=== PATIENT | female | born 1970 | race Caucasian/White ===

== ENCOUNTER → 2023-07-09 11:33 | Outpatient (REF) | payer OTHER, SELFPAY | LOC: HWRAD 11:33 | PROVIDERS: ATTENDING PHYSICIAN Internal Medicine Medical Oncology; FAMILY PHYSICIAN Family Medicine | DX: C79.51 Secondary malignant neoplasm of bone (principal) | CPT/HCPCS: 71260; 74177; Q9967 ==

== ENCOUNTER → 2023-07-10 07:59 | Outpatient (REF) | payer OTHER, SELFPAY | LOC: RAD 07:59 | PROVIDERS: ATTENDING PHYSICIAN Internal Medicine Medical Oncology; FAMILY PHYSICIAN Family Medicine | DX: C79.51 Secondary malignant neoplasm of bone (principal) | CPT/HCPCS: 78306; A9503 ==

== ENCOUNTER → 2023-10-21 14:51 | Outpatient (REF) | payer OTHER, SELFPAY | LOC: HWRAD 14:51 | PROVIDERS: ATTENDING PHYSICIAN Internal Medicine Medical Oncology; FAMILY PHYSICIAN Family Medicine | DX: C79.51 Secondary malignant neoplasm of bone (principal) | CPT/HCPCS: 71260; 74177; Q9967 ==

== ENCOUNTER → 2024-01-09 09:44 | Outpatient (REF) | payer OTHER, SELFPAY | LOC: HWRAD 09:44 | PROVIDERS: ATTENDING PHYSICIAN Nurse Practitioner Adult Health; FAMILY PHYSICIAN Family Medicine; REFERRING PHYSICIAN Orthopaedic Surgery Sports Medicine | DX: C79.51 Secondary malignant neoplasm of bone (principal); C50.919 Malignant neoplasm of unspecified site of unspecified female breast | CPT/HCPCS: 71260; 74177; Q9967 ==

== ENCOUNTER → 2024-05-01 16:03 | Outpatient (REF) | payer OTHER, SELFPAY | LOC: RAD 16:03 | PROVIDERS: ATTENDING PHYSICIAN Internal Medicine Medical Oncology; FAMILY PHYSICIAN Family Medicine | DX: C79.51 Secondary malignant neoplasm of bone (principal) | CPT/HCPCS: 71260; 74177; Q9967 ==

== ENCOUNTER 2024-06-02 12:37 | Emergency (ER) | payer OTHER, SELFPAY ==
[2024-06-02 12:41] VITALS: BP 113/69
[2024-06-02 13:05] LABS: % Basophils 0.1 % (0-2); % Eosinophils 2.4 % (0-6); % Immature Granulocytes 1.6 % (0-0.5); % Lymphocytes 7.6 % (20.5-51.1); % Monocytes 5.3 % (1.7-9.3); Absolute Eosinophils 0.2 10^3/uL (0-0.7); Absolute Immature Granulocytes 0.1 10^3/uL (0-0.05); Absolute Lymphocytes 0.7 10^3/uL (1.2-3.4); Absolute Monocytes 0.5 10^3/uL (0.1-0.6); Absolute Neutrophils 7.4 10^3/uL (1.4-6.5); Hematocrit 27.2 % (37.0-47.0); Hemoglobin 9.1 g/dL (12.0-16.0); Mean Corp Hgb Conc. 33.5 g/dL (33.0-37.0); Mean Corpuscular Hgb 39.7 pg (27.0-31.0); Mean Corpuscular Volume 118.8 fL (81.0-99.0); Mean Platelet Volume 10.6 fL (7.4-10.4); Nucleated Red Blood Cells % 0.4 %; Platelet Count 213 10^3/uL (130-400); Red Blood Cell Count 2.29 10^6/uL (4.20-5.40); Red Cell Dist. Width 18.1 % (11.5-14.5); White Blood Cell Count 8.9 10^3/uL (4.8-10.8)
[2024-06-02 13:18] LABS: COVID-19 Antigen Negative (Negative)
[2024-06-02 13:25] LABS: ALT (SGPT) 20 U/L (0-35); AST (SGOT) 23 U/L (14-36); Albumin 3.3 g/dl (3.5-5.0); Alkaline Phosphatase 173 U/L (38-126); Blood Urea Nitrogen 16 mg/dl (7-17); Carbon Dioxide 29 mmol/L (22-30); Chloride 97 mmol/L (98-107); Potassium 3.2 mmol/L (3.5-5.1); Sodium 136 mmol/L (135-145); Total Protein 5.9 g/dl (6.3-8.2)
[2024-06-02 13:33] LABS: NT-proBNP 520 pg/ml
[2024-06-02 13:49] LABS: Glucose 129 mg/dl (70-99); Total Bilirubin 1.1 mg/dl (0.2-1.3); eGFR > 60.00
[2024-06-02 15:29] VITALS: BP 102/71
--- NOTE | 2024-06-02 16:16 | ED.GENMED ---
History of Present Illness
General
Chief Complaint: Breathing Problem
Source: patient
Exam Limitations: none
Time Seen by Provider: 06/02/24 16:01
Nursing documentation reviewed up to this point in time: agreed with
History of Present Illness
History of Present Illness:
Patient is a 53-year-old female with history metastatic breast cancer (to bones)on oral chemotherapy presents to the ER for evaluation of cough. Patient has had cough for the past 6 days minimally short of breath and has had wheezing with cough.
She denies any fevers. No other sick contacts. She is followed by Dr. Bacon at [facility].
Past History
Past History
ED Past Medical History: Cancer (Metastatic breast CA)
Review of Systems
Review of Systems
Allergies reviewed?: Yes
All Other Systems: ROS reviewed and negative except as documented in HPI and ROS
Constitutional: Denies fever, fatigue or chills
EENT: Reports no symptoms
Respiratory: Reports cough, trouble breathing and other (' Wheezing')
ABD/GI: Reports no symptoms
Musculoskeletal: Reports no symptoms
Skin: Reports no symptoms
Neurological: Reports no symptoms
Psychiatric: Reports no symptoms
Phy Exam
General Physical Exam
General Presentation: no apparent distress
General age: appears stated age
General Skin: warm and dry
General Habitus: normal
General Mental: alert
General Hydration: appears well hydrated
Cardiovascular Exam
Cardiovascular Exam: regular rate/rhythm, no murmur and normal peripheral pulses
Pulmonary Exam
Pulmonary Exam: other (Expiratory wheezing; cough )
Neurological Exam
Neurological Exam: alert and oriented x3
Musculoskeletal Exam
Musculoskeletal Exam: full ROM
Skin Exam
Skin Exam: normal color, warm/dry and other (Chronic skin discoloration from oral chemotherapy)
Psychiatric Exam
Psychiatric Exam: normal mood/affect
Scores
Heart Failure Risk
Heart Failure Risk Score: Not Applicable
Course
Orders/Labs/Results
Orders:
Orders
06/02/24 12:44
Electrocardiogram (*1) Urgent
Reason for Study: Shortness of Breath
06/02/24 12:45
EKG- Treatment ONCE
06/02/24 12:49
COVID-19 Antigen Urgent
Source: Nasal Swab
Complete Blood Count/With Diff Urgent
Comprehensive Metabolic Panel Urgent
NT-proBNP Urgent
Influenza A+B Rapid Molecular Urgent
KEVIN Source: Nasal Swab
Specimen Description:
06/02/24 13:21
CR Chest - 2 Views Urgent
Comment:
Reason For Exam: cough
06/02/24 16:31
Albuterol Nebs [Ventolin Nebules] 2.5 mg INH R NOW STA
Abnormal Lab Results
06/02/24
12:49
RBC 2.29 L 10^6/uL
(4.20-5.40)
Hgb 9.1 L g/dL
(12.0-16.0)
Hct 27.2 L %
(37.0-47.0)
MCV 118.8 H fL
(81.0-99.0)
MCH 39.7 H pg
(27.0-31.0)
RDW 18.1 H %
(11.5-14.5)
MPV 10.6 H fL
(7.4-10.4)
Abs Immat Gran (auto) 0.1 H 10^3/uL
(0-0.05)
Absolute Neuts (auto) 7.4 H 10^3/uL
(1.4-6.5)
Absolute Lymphs (auto) 0.7 L 10^3/uL
(1.2-3.4)
Immature Gran % 1.6 H %
(0-0.5)
Neutrophils % 83.0 H %
(42.2-75.2)
Lymphocytes % 7.6 L %
(20.5-51.1)
Potassium 3.2 L mmol/L
(3.5-5.1)
Chloride 97 L mmol/L
(98-107)
Glucose 129 H mg/dl
(70-99)
Alkaline Phosphatase 173 H U/L
(38-126)
Total Protein 5.9 L g/dl
(6.3-8.2)
Albumin 3.3 L g/dl
(3.5-5.0)
06/02/24 12:49
06/02/24 12:49
Vital Signs
Initial and Last Documented VS:
Initial Vital Signs
Temp Pulse Resp BP Pulse Ox
98.0 F 110 18 113/69 94
06/02/24 12:41 06/02/24 12:41 06/02/24 12:41 06/02/24 12:41 06/02/24 12:41
Last Documented Vital Signs
Temp Pulse Resp BP Pulse Ox
98.2 F 84 29 114/67 97
06/02/24 15:29 06/02/24 17:30 06/02/24 17:30 06/02/24 17:03 06/02/24 18:00
Back Office Medical Assistant consulted with Physician
Back Office Medical Assistant consulted with physician?: Yes
Name of Physician Consulted: Zoila
MDM/Problems Addressed
Differential Diagnosis Includes:
Not limited to bronchitis, viral syndrome, COVID, flu, influenza
MDM/Problems Addressed:
As documented patient is a 53-year-old female with metastatic breast cancer presents with cough of the past 6 days wheezing minimally short of breath. Patient presents awake alert no acute distress she does have mild wheezing on exam however is not
hypoxic nontachypneic afebrile and well-appearing. Her white count is normal at 8.9 her hemoglobin is 9.1 she does report anemia history and is on oral chemotherapy. Patient's potassium normally low at 3.2 normal renal function. Patient is
negative for COVID flu. X-ray shows findings consistent with left basal opacities suspicious for multifocal pneumonia. Patient was given 1 neb here feeling much better stable for discharge home with oral antibiotics. Case discussed ED physician
will DC on oral Doxy. Patient potassium was minimally low when she was given 1 dose of oral KCl will have her have her labs rechecked by her oncologist/family doctor.
Chronic conditions affecting care:
Metastatic breast cancer
*Radiology
Radiology exam reviewed: radiology read reviewed (X-ray shows interstitial opacification without apparent left basilar opacity suspicious for multifocal pneumonia)
*Critical Care Note
Total Time (30-74mins, 75-104mins- exclusive of procedures): Not Applicable
ED Attending Note
-
Portions of this chart may have been created with voice recognition software.� Occasional wrong word or��sound alike� substitutions may have occurred due to the inherent limitations of voice recognition software.
Discharge Plan
Departure
Patient Disposition: Home (Routine Discharge)
Date of Disposition: 06/02/24
Time of Disposition: 18:19
Patient with high blood pressure during this ER visit?: No
Covid-19: Not Applicable
Discharge Problem:
Pneumonia
Instructions: Pneumonia in adults - Discharge instructions
Prescriptions:
New
doxycycline hyclate 100 mg capsule
100 mg PO BID 7 Days Qty: 14 0RF
albuterol sulfate 90 mcg/actuation HFA aerosol inhaler
2 inh inhalation Q6H PRN (Reason: shortness of breath or wheezing) Qty: 6.7 0RF
No Action
metformin 500 mg Tablet
500 mg PO BID
venlafaxine 75 mg Tablet
75 mg PO DAILY
cetirizine [Zyrtec] 10 mg Tablet
10 mg PO DAILY
oxycodone 10 mg Tablet
10 mg PO Q12H PRN (Reason: mod pain)
Piqray 250 mg/day (200 mg x1-50 mg x1) Tablet
250 mg PO DAILY
Brilinta 90 mg Tablet
90 mg PO BID Qty: 60 0RF
atorvastatin 80 mg Tablet
80 mg PO QPM Qty: 30 0RF
acetaminophen 325 mg Tablet
650 mg PO Q4HPRN PRN (Reason: mild pain) Qty: 0 0RF
lisinopril 5 mg Tablet
5 mg PO DAILY Qty: 30 0RF
aspirin 81 mg Tablet,Chewable
81 mg PO DAILY Qty: 0 0RF
Referrals:
Tatianna Mitchell MD [Family Provider] -
Activity Restrictions/Additional Instructions:
As discussed you are given 1 dose of oral antibiotics for pneumonia and a prescription was sent to your pharmacy take twice a day for the next 1 week. In addition your potassium was mildly low at 3.2 and you are given 1 dose of oral potassium.
Please increase foods rich in potassium such as potatoes greens orange juice bananas and have this potassium level re-checked in the next week by your family doctor. In addition your hemoglobin is mildly low at 9.1 please have this rechecked.(This
is likely from your oral chemotherapy).
Follow-up with your oncologist or family doctor for reevaluation of your pneumonia symptoms. Return if any worsening of symptoms including shortness of breath
In addition to antibiotic and inhaler was sent to your pharmacy to use as directed for wheezing.
Interventions
Interventions:
*Risk Screen - Suicide Last Done: 06/02/24 12:41
*General Assessment Last Done: 06/02/24 12:41
*Neglect/Abuse Screening Last Done: 06/02/24 12:41
*ED COVID-19 Vaccine History Last Done: 06/02/24 12:41
ED- Cardiac Assessment Last Done: 06/02/24 16:22
ED- Pulmonary Assessment Last Done: 06/02/24 16:22
Discharge Date and Time
Print Language: CHILEAN
[2024-06-02 16:20] VITALS: BP 122/71
[2024-06-02] MEDS: VENTOLIN NEBULES 2.5 MG INH (16:34)
[2024-06-02 17:03] VITALS: BP 114/67
[2024-06-02] MEDS: KCL ELIXIR 40 MEQ PO (18:30)
[2024-06-02] MEDS: VIBRAMYCIN 100 MG PO (18:30)
[2024-06-02 18:31] VITALS: BP 136/77
== END 2024-06-02 18:37 | disposition home or self-care (01) ==
LOC: EMR 12:37
PROVIDERS: Emergency Medicine; EMERGENCY PHYSICIAN Student in an Organized Health Care Education/Training Program; FAMILY PHYSICIAN Hospitalist
DX: J18.9 Pneumonia, unspecified organism (principal); Z11.52 Encounter for screening for COVID-19; Z85.3 Personal history of malignant neoplasm of breast
CPT/HCPCS: 99285; 94640; 71046; 80053; 83880; 85025; 87502; 87811; 93005

== ENCOUNTER → 2024-08-26 09:42 | Outpatient (REF) | payer OTHER, SELFPAY | LOC: RAD 09:42 | PROVIDERS: ATTENDING PHYSICIAN Hospitalist; FAMILY PHYSICIAN Family Medicine | DX: C50.911 Malignant neoplasm of unspecified site of right female breast (principal); C78.7 Secondary malignant neoplasm of liver and intrahepatic bile duct | CPT/HCPCS: 71260; 74177; Q9967 ==